=== PATIENT | female | born 1940 | race Caucasian/White ===

== ENCOUNTER 2017-03-01 13:36 | Inpatient (IN) | payer MEDICARE ==
[~2017-03-01] VITALS: Ht 170.2 cm; Wt 79.5 kg
[2017-03-01] VITALS (13 sets, daily range): BP systolic 137–197; BP diastolic 72–96; PULSE 50–89; RESP 16–20; TEMP 97.6–98.5; O2SAT 95–100
[2017-03-01] MEDS ORDERED: LEVO25TA4 PO (13:57)
[2017-03-01] MEDS ORDERED: CLON1TAB PO (13:57)
[2017-03-01] MEDS ORDERED: LOSA100T PO (13:57)
[2017-03-01] MEDS ORDERED: APIX5TAB PO (13:57)
[2017-03-01] MEDS ORDERED: DILT-44 PO (13:57)
--- NOTE | 2017-03-01 14:25 | PD ---
HPI Chief Complaint: Pain: Acute or Chronic Time Seen by Provider: 13:49 Travel History International Travel<30 days: No Contact w/Intl Traveler<30days: No Traveled to known affect area: No History of Present Illness HPI 76-year-old female history of hypertension, atrial fibrillation, who presents today with complaints of jaw pain. Patient states she's had it for nearly 24 hours. She states it improved since yesterday. She states she called her doctor in [place] who told her to come in the evaluated as she could have atypical ACS. Patient denies any chest pain, chest pressure. She does states she's been a little bit more fatigued than normal. She denies any shortness of breath or diaphoresis. PFSH Past Medical History Hx Anticoagulant Therapy: Yes (ELIQUIS) Atrial Fibrillation: Yes Anxiety: Yes Cardiovascular Problems: Yes (A. FIB) Hypertension: Yes Thyroid Disease: Yes ?: Not Past Surgical History Surgical History: No Previous Surgery Social History Alcohol Use: Yes Tobacco Use: No Substance Use: No Allergies-Medications (Allergen,Severity, Reaction): Coded Allergies: No Known Allergies (Unverified , 03/01/17) Reported Meds & Prescriptions Reported Meds & Active Scripts Active Reported Clonazepam 1 Mg Tab 1 Mg PO BID PRN Diltiazem ER 24 HR 420 Mg Caper 420 Mg PO DAILY Losartan (Losartan Potassium) 100 Mg Tab 100 Mg PO HS Eliquis (Apixaban) 5 Mg Tab 5 Mg PO BID Levothyroxine (Levothyroxine Sodium) 25 Mcg Tab 25 Mcg PO DAILY Review of Systems Except as stated in HPI: all other systems reviewed are Neg General / Constitutional: No: Fever HENT: Positive: Other, No: Headaches, Neck Pain Cardiovascular: Positive: Irregular Rhythm, No: Chest Pain or Discomfort, Palpitations (jaw pain) Respiratory: No: Cough, Shortness of Breath Gastrointestinal: No: Nausea, Vomiting, Abdominal Pain Genitourinary: Positive: Frequency, Dysuria Musculoskeletal: Positive: Weakness (I generalized fatigue), No: Pain Neurologic: No: Weakness, Dizziness, Headache Physical Exam Narrative GENERAL: Well-developed well-nourished female in no acute rest her distress. SKIN: Focused skin assessment warm/dry. HEAD: Atraumatic. Normocephalic. EYES: No scleral icterus. No injection or drainage. ENT: No nasal bleeding or discharge. Mucous membranes pink and moist. NECK: Trachea midline. No JVD. Supple CARDIOVASCULAR: Irregularly irregular with a rate in the 90s. No murmur appreciated. RESPIRATORY: No accessory muscle use. Clear to auscultation. Breath sounds equal bilaterally. GASTROINTESTINAL: Abdomen soft, non-tender, nondistended. Hepatic and splenic margins not palpable. MUSCULOSKELETAL: No obvious deformities. No clubbing. No cyanosis. Trace pretibial edema bilaterally NEUROLOGICAL: Awake and alert. No obvious cranial nerve deficits. Motor grossly within normal limits. Normal speech. PSYCHIATRIC: Appropriate mood and affect; insight and judgment normal. Data Data Last Documented VS Vital Signs Date Time Temp Pulse Resp B/P Pulse Ox O2 Delivery O2 Flow Rate FiO2 03/01/17 16:09 68 17 197/86 97 Nasal Cannula 2 03/01/17 15:02 98.5 Orders Electrocardiogram (03/01/17 14:57) Basic Metabolic Panel (Bmp) (03/01/17 14:57) Ckmb (Isoenzyme) Profile (03/01/17 14:57) Complete Blood Count With Diff (03/01/17 14:57) Magnesium (Mg) (03/01/17 14:57) Prothrombin Time / Inr (Pt) (03/01/17 14:57) Act Partial Throm Time (Ptt) (03/01/17 14:57) Troponin I (03/01/17 14:57) Chest, Single Ap (03/01/17 14:57) Ecg Monitoring (03/01/17 14:57) Bilateral Bp Monitoring (03/01/17 14:57) Iv Access Insert/Monitor (03/01/17 14:57) Oximetry (03/01/17 14:57) Oxygen Administration (03/01/17 14:57) Sodium Chloride 0.9% Flush (Ns Flush) (03/01/17 15:00) Sodium Chlor 0.9% 1000 Ml Inj (Ns 1000 M (03/01/17 15:45) Metoprolol Tartrate Inj (Lopressor Inj) (03/01/17 16:00) Morphine Inj (Morphine Inj) (03/01/17 16:00) Aspirin Chew (Aspirin Chew) (03/01/17 16:15) Diltiazem Cd (Cardizem Cd) (03/01/17 16:30) Diltiazem Cd (Cardizem Cd) (03/01/17 16:30) Echo 2d Comp With Doppler (03/01/17 ) Nitroglycerin-Dextrose Inj (Nitroglyceri (03/01/17 17:00) Clonazepam (Klonopin) (03/01/17 17:00) Levothyroxine (Synthroid) (03/02/17 06:00) Losartan (Cozaar) (03/01/17 21:00) Diltiazem Cd (Cardizem Cd) (03/02/17 09:00) Lipid Profile (03/02/17 06:00) Carvedilol (Coreg) (03/01/17 21:00) Atorvastatin (Lipitor) (03/01/17 21:00) Hepatic Functional Panel (03/01/17 17:04) Aspirin (Aspirin) (03/02/17 09:00) Diltiazem Cd (Cardizem Cd) (03/02/17 09:00) Labs Laboratory Tests Test 03/01/17 13:55 White Blood Count 9.2 TH/MM3 Red Blood Count 5.19 MIL/MM3 Hemoglobin 15.6 GM/DL Hematocrit 46.2 % Mean Corpuscular Volume 89.0 FL Mean Corpuscular Hemoglobin 30.0 PG Mean Corpuscular Hemoglobin 33.7 % Concent Red Cell Distribution Width 12.9 % Platelet Count 213 TH/MM3 Mean Platelet Volume 8.3 FL Neutrophils (%) (Auto) 71.7 % Lymphocytes (%) (Auto) 18.3 % Monocytes (%) (Auto) 8.4 % Eosinophils (%) (Auto) 1.3 % Basophils (%) (Auto) 0.3 % Neutrophils # (Auto) 6.6 TH/MM3 Lymphocytes # (Auto) 1.7 TH/MM3 Monocytes # (Auto) 0.8 TH/MM3 Eosinophils # (Auto) 0.1 TH/MM3 Basophils # (Auto) 0.0 TH/MM3 CBC Comment DIFF FINAL Differential Comment Prothrombin Time 11.2 SEC Prothromb Time International 1.0 RATIO Ratio Activated Partial 31.7 SEC Thromboplast Time Sodium Level 136 MEQ/L Potassium Level 4.0 MEQ/L Chloride Level 100 MEQ/L Carbon Dioxide Level 26.5 MEQ/L Anion Gap 10 MEQ/L Blood Urea Nitrogen 17 MG/DL Creatinine 0.79 MG/DL Estimat Glomerular Filtration 71 ML/MIN Rate Random Glucose 89 MG/DL Calcium Level 9.0 MG/DL Magnesium Level 2.4 MG/DL Total Creatine Kinase 48 U/L Troponin I 0.24 NG/ML MDM Medical Decision Making Medical Screen Exam Complete: Yes Emergency Medical Condition: Yes Differential Diagnosis Atypical ACS versus TMJ versus jaw strain Narrative Course 76-year-old female with history of hypertension, atrial fibrillation, presents here with complaints of jaw pain since this morning. Patient states that she has no chest pain, chest pressure. She does say that she's been a little bit more weak than normal. EKG showed A. fib with an interventricular conduction delay. There is questionable [address] elevation in the anterior septal leads. Cardiac enzymes reveal troponin of 0.24. She is noted to have elevated blood pressure. She was given Lopressor which did not bring it down enough. She was then given 420 mg of Cardizem that she normally takes. Pressure still elevated so Dr. Caceres who was seen the patient has consulted and has written for a nitro drip. She'll be admitted to the resident service under Dr. Byron Francis says the attending physician. Please note Dr. Rosen, senior resident has been gracious enough to come down and see the patient. Diagnosis Primary Impression: Non-ST elevation NE (NSTEMI) Additional Impressions: Atrial fibrillation Uncontrolled hypertension Admitting Information Admitting Physician Requests: Admit Chet Whitley MD Mar 01, 2017 14:25
[2017-03-01] MEDS: SODIUM CHLORIDE 0.9% FLUSH 10 ML FLUSH IVF PRN ×2 (15:04→16:04)
[2017-03-01 15:22] LABS: AUTOMATED NEUTROPHIL # 6.6 TH/MM3 (1.8-7.7); BASOPHIL % 0.3 % (0.0-2.0); EOSINOPHIL # 0.1 TH/MM3 (0-0.4); EOSINOPHIL % 1.3 % (0.0-4.0); HEMATOCRIT 46.2 % (35.0-46.0); HEMO FLAGS DIFF FINAL; LYMPH % 18.3 % (9.0-44.0); LYMPHOCYTE # 1.7 TH/MM3 (1.0-4.8); MEAN CORPUSCULAR HGB CONC 33.7 % (32.0-36.0); MONO % 8.4 % (0.0-8.0); NEUT % 71.7 % (16.0-70.0); PLATELET COUNT 213 TH/MM3 (150-450); RED BLOOD COUNT 5.19 MIL/MM3 (4.00-5.30); RED CELL DISTRIBUTION WIDTH 12.9 % (11.6-17.2); WHITE BLOOD COUNT 9.2 TH/MM3 (4.0-11.0)
[2017-03-01 15:32] LABS: APTT (PATIENT) 31.7 SEC (24.3-30.1); PROTHROMBIN TIME - PATIENT 11.2 SEC (9.8-11.6)
--- NOTE | 2017-03-01 15:36 | RADRPT ---
EXAM DATE/TIME: 03/01/2017 15:00 [facility] COMPARISON: No previous studies available for comparison. INDICATIONS : Jaw pain. MEDICAL HISTORY : Atrial fibrillation SURGICAL HISTORY : None. ENCOUNTER: Initial ACUITY: 1 day PAIN SCORE: 7/10 LOCATION: Jaw FINDINGS: A single view of the chest demonstrates the lungs to be symmetrically aerated without evidence of mas s, infiltrate or effusion. Heart is mildly enlarged The cardiomediastinal contours are otherwise unre markable. Osseous structures are intact. CONCLUSION: Mild cardiomegaly. No acute cardiopulmonary process. Eh Santana MD on March 01, 2017 at 15:34 Board Certified Radiologist. This report was verified electronically.
[2017-03-01] MEDS ORDERED: SODIUM CHLOR 0.9% 1000 ML INJ 1,000 ML IV ONE (15:45)
[2017-03-01 15:47] LABS: BICARBONATE 26.5 MEQ/L (21.0-32.0); MAGNESIUM 2.4 MG/DL (1.5-2.5)
[2017-03-01] MEDS ORDERED: MORPHINE SULFATE 4 MG/ML INJ IV PUSH ONE (16:00)
[2017-03-01] MEDS ORDERED: METOPROLOL TARTRATE 5 MG/5 ML VIAL IV PUSH ONE (16:00)
[2017-03-01] MEDS ORDERED: ASPIRIN 81 MG CHEW TAB CHEW ONE (16:15)
[2017-03-01] MEDS ORDERED: DILTIAZEM-CD 180 MG CAP ER PO SCH (16:30)
[2017-03-01] MEDS ORDERED: DILTIAZEM-CD 240 MG CAP ER PO ONE (16:30)
--- NOTE | 2017-03-01 17:01 | HHI.HP ---
[facility] Primary Care Physician Non-Staff Admission Diagnosis Diagnoses: International Travel<30 Days: No Contact w/Intl Traveler<30days: No Known Affected Area: No History of Present Illness Patient is a 76-year-old female with a past history of hypertension and hypothyroidism who came into the ED with jaw pain. The patient states that yesterday prior to going out to shop she felt slightly lightheaded, but that passed shortly. At 11:30 on the day of admission she noted some jaw pain. She contacted her primary care provider Dr. Arnaldo estrada in [facility] who advised her to go to the ED to rule out a possible atypical myocardial infarction. She notes that the jaw pain was dull, started on the left side and eventually felt throughout the entire jaw. The pain has since subsided. No complaints of concurrent dizziness chest pain, palpitations, shortness of breath , headache, changes in vision, syncope, weakness, numbness or tingling, abdominal pain, changes in bowel or bladder habits. Currently at admission notes resolution of her jaw pain. No other current complaints. She notes she sees Dr. Alphonso Chappell at [facility] in [facility]. (Vignesh Best MD R1) Review of Systems Constitutional: DENIES: Diaphoretic episodes, Fatigue, Fever, Chills, Dizziness , Change in appetite, Night Sweats Endocrine: DENIES: Heat/cold intolerance, Polydipsia, Polyuria, Polyphagia Eyes: DENIES: Blurred vision, Diplopia, Eye inflammation, Eye pain, Vision loss , Photosensitivity, Double Vision Ears, nose, mouth, throat: DENIES: Hearing loss, Vertigo, Nasal discharge, Throat pain, Hoarseness, Ear Pain, Running Nose, Epistaxis, Sinus Pain Respiratory: DENIES: Cough, Wheezing, Hemoptysis, Sputum production, Shortness of breath Cardiovascular: COMPLAINS OF: Lower Extremity Edema (Normally has swelling during the day that decreases at night, better today), DENIES: Chest pain, Palpitations, Syncope, PND, Orthopnea, Claudication Gastrointestinal: DENIES: Abdominal pain, Black stools, Bloody stools, Constipation, Diarrhea, Nausea, Vomiting Genitourinary: DENIES: Urinary frequency, Urgency, Hematuria, Dysuria, Nocturia Musculoskeletal: DENIES: Joint pain, Muscle aches, Joint Swelling Neurologic: DENIES: Abnormal gait, Headache, Localized weakness Psychiatric: DENIES: Confusion (Vignesh Best MD R1) Past Family Social History Past Medical History Afib HTN Hypothyroid Past Surgical History None reported (Vignesh Best MD R1) Allergies: Coded Allergies: No Known Allergies (Unverified , 03/01/17) Family History Father - bypass surgery in 60s, stroke at 77 / Mother - HTN Sister - Parkinson, pacemaker, stroke (refused to take her anticoagulation) Social History ETOH - wine occasionally Smoking: No Drugs - Never (Vignesh Best MD R1) Physical Exam Vital Signs Vital Signs Date Time Temp Pulse Resp B/P Pulse Ox O2 Delivery O2 Flow Rate FiO2 03/01/17 16:09 68 17 197/86 97 Nasal Cannula 2 03/01/17 15:04 100 Nasal Cannula 2 03/01/17 15:02 100 Nasal Cannula 2 03/01/17 15:02 98.5 59 18 172/82 100 Nasal Cannula 2 03/01/17 14:00 89 18 03/01/17 13:38 97.6 88 20 196/96 97 Room Air Physical Exam GENERAL: This is a well-nourished, well-developed patient, in no apparent distress. SKIN: No rashes, ecchymoses or lesions. Cool and dry. HEAD: Atraumatic. Normocephalic. No temporal or scalp tenderness. EYES: Pupils equal round and reactive. Extraocular motions intact. No scleral icterus. No injection or drainage. ENT: Nose without bleeding, purulent drainage or septal hematoma. Throat without erythema, tonsillar hypertrophy or exudate. Uvula midline. Airway patent. NECK: Trachea midline. No JVD or lymphadenopathy. Supple, nontender, no meningeal signs. CARDIOVASCULAR: irregularly irregular without murmurs, gallops, or rubs. Normal S1/S2 RESPIRATORY: Clear to auscultation. Breath sounds equal bilaterally. No wheezes , rales, or rhonchi. GASTROINTESTINAL: Abdomen soft, non-tender, nondistended. No hepato-splenomegaly , or palpable masses. No guarding. MUSCULOSKELETAL: Extremities without clubbing, cyanosis. 1+ edema in lower B/L extremities. No joint tenderness, effusion, or edema noted. No calf tenderness. NEUROLOGICAL: Awake and alert. Cranial nerves II through XII intact. Motor and sensory grossly within normal limits. Five out of 5 muscle strength in all muscle groups. Normal speech. Laboratory Laboratory Tests Test 03/01/17 13:55 White Blood Count 9.2 Red Blood Count 5.19 Hemoglobin 15.6 Hematocrit 46.2 Mean Corpuscular Volume 89.0 Mean Corpuscular Hemoglobin 30.0 Mean Corpuscular Hemoglobin 33.7 Concent Red Cell Distribution Width 12.9 Platelet Count 213 Mean Platelet Volume 8.3 Neutrophils (%) (Auto) 71.7 Lymphocytes (%) (Auto) 18.3 Monocytes (%) (Auto) 8.4 Eosinophils (%) (Auto) 1.3 Basophils (%) (Auto) 0.3 Neutrophils # (Auto) 6.6 Lymphocytes # (Auto) 1.7 Monocytes # (Auto) 0.8 Eosinophils # (Auto) 0.1 Basophils # (Auto) 0.0 CBC Comment DIFF FINAL Differential Comment Prothrombin Time 11.2 Prothromb Time International 1.0 Ratio Activated Partial 31.7 Thromboplast Time Sodium Level 136 Potassium Level 4.0 Chloride Level 100 Carbon Dioxide Level 26.5 Anion Gap 10 Blood Urea Nitrogen 17 Creatinine 0.79 Estimat Glomerular Filtration 71 Rate Random Glucose 89 Calcium Level 9.0 Magnesium Level 2.4 Total Creatine Kinase 48 Troponin I 0.24 (Vignesh Best MD R1) Result Diagram: 03/01/17 1355 03/01/17 1355 Imaging Last 24 hours Impressions Chest X-Ray 03/01/17 1457 Signed Impressions: Service Date/Time: Friday, March 01, 2017 15:00 - CONCLUSION: Mild cardiomegaly. No acute cardiopulmonary process. Eh Santana MD (Vignesh Best MD R1) Assessment and Plan Assessment and Plan 76 year old female with past history of HTN and hypothyroid presented to the ED with jaw pain. Troponin elevated at .24 on admission. Had a dose of eliquis on day of admission, cardiac intervention deferred for this day. Code Status Full (Vignesh Best MD R1) Attending Attestation THIS CASE WAS DISCUSSED WITH THE RESIDENT PHYSICIANS. I HAVE REVIEWED THE RECORD AND AGREE WITH THE ABOVE NOTE AND PLAN OF CARE WAS DISCUSSED. I HAVE AUTHORIZED THE ORDER FOR ADMISSION TO AN IN-PATIENT STATUS. (Byron Mcguire MD) Problem List: (1) Non-ST elevation PR (NSTEMI) Status: Acute Plan: * Cardiology on board, appreciate recommendations * Troponin .24 on admission, F/U troponin x 2 * F/U lipid profile * ASA 81 daily * Nitro * Atorvastatin 10 mg hs * Delayed catheterization due to dose of Eliquis on day of admission * F/U echo * Morphine prn pain * Carvedilol 3.125 mg q12 (2) Atrial fibrillation Status: Acute Plan: * Diltiazem * Carvedilol 3.125 mg q12 * Eliquis held due to possible cath (3) HTN (hypertension) Status: Acute Plan: * Cardiology on board * Carvedilol 3.125 mg q12 * Nitro drip (4) Hypothyroid Status: Acute Plan: Continue home medications * Levothyroxine 25 mcg daily * F/U TSH (5) FEN Status: Acute Plan: Fluids - 1/2 maintenance NS @ 60 mls/hr Electrolytes - monitor and correct as needed Nutrition - NPO after midnight PPX -on Eliquis, possible cath in AM (Vignesh Best MD R1) Physician Certification 2 Midnight Certification Type: Admission for Inpatient Services Order for Inpatient Services The services are ordered in accordance with Medicare regulations or non- Medicare payer requirements, as applicable. In the case of services not specified as inpatient-only, they are appropriately provided as inpatient services in accordance with the 2-midnight benchmark. Estimated LOS (days): 2 2 days is the estimated time the patient will need to remain in the hospital, assuming treatment plan goals are met and no additional complications. Post-Hospital Plan: Home (Vignesh Best MD R1) Vignesh Best MD R1 Mar 01, 2017 17:01 Byron Mcguire MD Mar 02, 2017 15:21
[2017-03-01] MEDS ORDERED: ONDANSETRON HCL 4 MG/2 ML VIAL IV PRN (17:15)
[2017-03-01] MEDS ORDERED: SODIUM CHLORIDE 0.9% FLUSH 10 ML FLUSH IV FLUSH PRN (17:15)
[2017-03-01] MEDS ORDERED: MORPHINE SULFATE 4 MG/ML INJ IV PRN (17:15)
[2017-03-01] MEDS ORDERED: NITROGLYCERIN 2% OINT 1 GM PACKET TOP PRN (17:15)
[2017-03-01] MEDS ORDERED: NITROGLYCERIN 0.4 MG SL 25 TABS/BTL SL PRN (17:15)
[2017-03-01] MEDS: NITROGLYCERIN-DEXTROSE INJ 250 ML IV SCH (17:18)
--- NOTE | 2017-03-01 17:26 | MB ---
cc: DOMINICK CALHOUN MD DATE OF CONSULTATION: 03/01/2017. REASON FOR CONSULTATION: Jaw pain and elevated troponin. HISTORY OF PRESENT ILLNESS Ms. Jackson is a 76-year-old female who does have a history of hypertension and atrial fibrillation. She presented after several hours of jaw pain. The jaw pain started after breakfast. She did take her Eliquis at that time. She notes that it lasted several hours and did not appear to have any precipitating or relieving factors. She denied any chest or arm pain. The patient is currently jaw pain-free. She does not have any shortness of breath or diaphoresis. PAST MEDICAL HISTORY: Her past medical history is significant for: 1. Hypothyroidism. 2. Hypertension. 3. Atrial fibrillation. 4. An abnormal EKG. ALLERGIES: NO KNOWN DRUG ALLERGIES. OUTPATIENT MEDICATIONS: 1. Clonazepam 1 milligram p.o. twice a day PRN. 2. Diltiazem 420 milligrams daily at noon. 3. Losartan 100 milligrams at bedtime. 4. Apixaban 5 milligrams twice a day. 5. Levothyroxine 25 micrograms a day. FAMILY HISTORY Positive for father who had a CABG and mother who had a CVA. REVIEW OF SYSTEMS: Except for what is mentioned in the history of present illness, all twelve systems are negative. SOCIAL HISTORY: The patient is a former smoker. PHYSICAL EXAMINATION: VITAL SIGNS: On physical examination, vital signs are 68, 17, 197/86. GENERAL: In general, she is a well-appearing female who is in no apparent distress. NECK: Her neck is free from jugular venous distention. LUNGS: The lungs are bilaterally clear to auscultation. CARDIOVASCULAR: On cardiovascular examination, she has an irregularly irregular rhythm. No rubs or gallops are appreciated. ABDOMEN: The abdomen is soft. EXTREMITIES: Free from edema. EKG shows atrial fibrillation. There are anteroseptal Q-waves with about 1 mm S-T elevation. There is also abnormal R-wave progression and interventricular conduction delay. Of note, the first ECG leads 3 through 6 were misplaced to the right about six inches. EKG #2 shows atrial fibrillation with anteroseptal Q waves and this is more consistent with her underlying left bundle branch block. LAB VALUES: Significant for: Hemoglobin of 15.6. Her creatinine is 0.79. Her troponin is 0.24. IMPRESSIONS: 1. Non-S-T elevation myocardial infarction - it is not clear if this is a secondary event from her uncontrolled hypertension or a primary event. At this point, the patient is pain-free. She has had a dose of Eliquis about six to eight hours earlier. Given this scenario, and that she is pain-free, at this point I am going to defer invasive evaluation. An echocardiogram has been requested. I believe aspirin and beta izzy is reasonable. 2. History of atrial fibrillation - the patient is well rate controlled. She will be continued on the Diltiazem. She has been given some beta blockade which we will continue low dose. I am going to hold her Eliquis in case we do need to proceed with catheterization. 3. 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 4. Uncontrolled hypertension - this may be the etiology of the patient's pain. I am going to start her on a nitro drip for her blood pressure control. , Dominick Calhoun M.D. ELISA/LILLIANA /4:56 PM /5:08 PM
--- NOTE | 2017-03-01 17:41 | ECHRPT ---
Indication: CONCLUSIONS The left ventricle is not well visualized. There was limited left ventricular wall motion assessment due to poor endocardial visualization. The left ventricular systolic function is low normal with an estimated ejection fraction in the rang e of 50- 55%. Wall thickness is measured at the upper limits of normal. Normal left ventricular size. The right atrial size is mildly dilated. Mild mitral valve regurgitation. The aortic valve is not well visualized. Mild thickening of the aortic valve leaflets. Probably trileaflet aortic valve. Mild aortic valve regurgitation. The tricuspid valve is not well visualized. There is mild to moderate tricuspid valve regurgitation. The estimated pulmonary arterial pressure is 53 mmHg. The pulmonary valve is not well visualized. BP: / HR: 78 Rhythm: Atrial fibrillation MEASUREMENTS (Male / Female) Normal Values Technical Quality:Technically difficult study 2D ECHO LV Diastolic Diameter PLAX 4.4 cm 4.2 - 5.9 / 3.9 - 5.3 cm LV Systolic Diameter PLAX 3.1 cm IVS Diastolic Thickness 0.9 cm 0.6 - 1.0 / 0.6 - 0.9 cm LVPW Diastolic Thickness 0.9 cm 0.6 - 1.0 / 0.6 - 0.9 cm LV Relative Wall Thickness 0.4 LVOT Diameter 1.8 cm M-MODE Aortic Root Diameter MM 2.8 cm LA Systolic Diameter MM 4.0 cm LA Ao Ratio MM 1.4 DOPPLER AV Peak Velocity 128.0 cm/s AV Peak Gradient 6.6 mmHg AI Peak Velocity 488.0 cm/s AI Peak Gradient 95.3 mmHg AI Pressure Half Time 646.7 ms LVOT Peak Velocity 74.5 cm/s LVOT Peak Gradient 2.2 mmHg AV Area Cont Eq pk 1.5 cm MR Peak Velocity 419.5 cm/s MR Peak Gradient 70.4 mmHg Mitral E Point Velocity 112.0 cm/s Mitral A Point Velocity 51.3 cm/s Mitral E to A Ratio 2.2 TR Peak Velocity 326.0 cm/s TR Peak Gradient 43.0 mmHg PV Peak Velocity 77.4 cm/s PV Peak Gradient 2.4 mmHg FINDINGS LEFT VENTRICLE The left ventricle is not well visualized. Dyssynchrony of motion from BBB. There was limited left ventricular wall motion assessment due to poor endocardial visualization. The left ventricular systolic function is low normal with an estimated ejection fraction in the rang e of 50- 55%. Wall thickness is measured at the upper limits of normal. Normal left ventricular size. RIGHT VENTRICLE Normal right ventricular size and systolic function. LEFT ATRIUM The left atrial size is normal. RIGHT ATRIUM The right atrial size is mildly dilated. ATRIAL SEPTUM Normal atrial septal thickness without atrial level shunting by limited color doppler interrogation. AORTA The aortic root and proximal ascending aorta are normal in size on limited imaging. MITRAL VALVE Structurally normal mitral valve. Mild mitral valve regurgitation. AORTIC VALVE The aortic valve is not well visualized. Mild thickening of the aortic valve leaflets. Probably trileaflet aortic valve. Mild aortic valve regurgitation. TRICUSPID VALVE The tricuspid valve is not well visualized. There is mild to moderate tricuspid valve regurgitation. The estimated pulmonary arterial pressure is 53 mmHg. PULMONARY VALVE The pulmonary valve is not well visualized. VESSELS The inferior vena cava is normal in size. PERICARDIUM No pericardial effusion. Papo Palma MD (Electronically Signed) Final Date:01 March 2017 17:38
[2017-03-01 18:42] LABS: HDL CHOLESTEROL 87.1 MG/DL (40.0-60.0); INDIRECT BILIRUBIN 0.4 MG/DL (0.0-0.8); TOTAL BILIRUBIN ADULT 0.5 MG/DL (0.2-1.0)
[2017-03-01] MEDS: ATORVASTATIN 10 MG TAB PO SCH (20:41)
[2017-03-01] MEDS: LOSARTAN 50 MG TAB PO SCH (20:41)
[2017-03-01] MEDS: CARVEDILOL 3.125 MG TAB PO SCH (20:41)
[2017-03-01] MEDS: SODIUM CHLORIDE 0.9% FLUSH 10 ML FLUSH IV FLUSH SCH (20:42)
[2017-03-01 20:47] LABS: CREATINE KINASE 150 U/L (26-192)
[2017-03-01] MEDS: SODIUM CHLOR 0.9% 1000 ML INJ 1,000 ML IV SCH (21:15)
[2017-03-01 21:28] LABS: CKMB 15.7 NG/ML (0.5-3.6)
[2017-03-01] MEDS: clonazePAM 1 MG TAB PO PRN (21:52)
[2017-03-02] VITALS (27 sets, daily range): BP systolic 121–160; BP diastolic 62–85; PULSE 50–86; RESP 14–18; TEMP 97.5–98.7; O2SAT 92–97
[2017-03-02 03:15] LABS: AUTOMATED NEUTROPHIL # 4.4 TH/MM3 (1.8-7.7); BASOPHIL % 0.5 % (0.0-2.0); EOSINOPHIL # 0.1 TH/MM3 (0-0.4); EOSINOPHIL % 1.6 % (0.0-4.0); HEMATOCRIT 38.2 % (35.0-46.0); HEMO FLAGS DIFF FINAL; LYMPH % 28.1 % (9.0-44.0); LYMPHOCYTE # 2.1 TH/MM3 (1.0-4.8); MEAN CELL VOLUME 88.2 FL (80.0-100.0); MEAN CORPUSCULAR HEMOGLOBIN 30.5 PG (27.0-34.0); MEAN CORPUSCULAR HGB CONC 34.6 % (32.0-36.0); MONO % 11.6 % (0.0-8.0); NEUT % 58.2 % (16.0-70.0); PLATELET COUNT 180 TH/MM3 (150-450); RED BLOOD COUNT 4.34 MIL/MM3 (4.00-5.30); RED CELL DISTRIBUTION WIDTH 12.8 % (11.6-17.2); WHITE BLOOD COUNT 7.5 TH/MM3 (4.0-11.0)
[2017-03-02 03:46] LABS: ALKALINE PHOSPHATASE 108 U/L (45-117); ALT (GPT) 20 U/L (10-53); ANION GAP 8 MEQ/L (5-15); AST (GOT) 39 U/L (15-37); BICARBONATE 24.9 MEQ/L (21.0-32.0); BLOOD UREA NITROGEN 14 MG/DL (7-18); CHLORIDE 106 MEQ/L (98-107); CREATINE KINASE 143 U/L (26-192); GLOMERULAR FILTRATION RATE 80 ML/MIN (>89); HDL CHOLESTEROL 73.1 MG/DL (40.0-60.0); LDL CHOLESTEROL 79 MG/DL (0-99); POTASSIUM 3.7 MEQ/L (3.5-5.1); SODIUM (NA) 139 MEQ/L (136-145); TOTAL BILIRUBIN ADULT 0.5 MG/DL (0.2-1.0)
[2017-03-02 04:05] LABS: CKMB 15.9 NG/ML (0.5-3.6)
[2017-03-02] MEDS: LEVOTHYROXINE SODIUM 25 MCG TAB PO SCH (05:56)
[2017-03-02] MEDS ORDERED: diphenhydrAMINE HCL 50 MG/ML VIAL IV SCH (07:15)
--- NOTE | 2017-03-02 08:18 | HHI.FPPN ---
Subjective Remarks FM Attending Note: Patient seen and examined. S: Chart and all resident physician notes reviewed. In summary this is a 76 year old female who was admitted with an admission diagnosis of possible Nonstemi,Jaw Pain Resolved,Atrial Fibrillation, This patient is visiting from [place]. She has a past history of hypertension and hypothyroidism. She came into the ED with jaw pain. The patient states that yesterday prior to going out to shop she felt slightly lightheaded, but that passed shortly. At 11: 30 she noted some jaw pain while at rest. She contacted her primary care provider Dr. Arnaldo Alcantar in [facility] who advised her to go to the ED to rule out a possible atypical myocardial infarction. She notes that the jaw pain was dull, started on the left side and eventually felt throughout the entire jaw. The pain has since subsided and has not recurred since admission (she is on a nitroglycerin drip). No complaints of concurrent dizziness chest pain, palpitations, shortness of breath, headache, changes in vision, syncope, weakness, numbness or tingling, abdominal pain, changes in bowel or bladder habits.. The history of the present illness, past/family/social history and review of systems documented by Dr. Best were reviewed and confirmed. Objective Vitals Vital Signs Date Time Temp Pulse Resp B/P Pulse Ox O2 Delivery O2 Flow Rate FiO2 03/02/17 07:22 98.1 65 14 156/63 92 03/02/17 06:00 64 03/02/17 05:00 68 03/02/17 04:00 64 03/02/17 03:00 69 03/02/17 03:00 98.4 63 18 138/68 94 03/02/17 02:00 53 03/02/17 01:00 50 03/02/17 00:00 55 03/02/17 00:00 98.7 55 18 121/62 94 03/01/17 23:00 50 03/01/17 22:00 51 03/01/17 21:00 63 03/01/17 20:00 62 03/01/17 19:15 97.9 84 18 137/72 95 03/01/17 19:00 67 03/01/17 18:31 97.6 75 16 157/84 95 03/01/17 18:30 89 167/79 100 Nasal Cannula 2 03/01/17 18:00 95 21 03/01/17 17:29 22 03/01/17 16:09 68 17 197/86 97 Nasal Cannula 2 03/01/17 15:04 100 Nasal Cannula 2 03/01/17 15:02 100 Nasal Cannula 2 03/01/17 15:02 98.5 59 18 172/82 100 Nasal Cannula 2 03/01/17 14:00 89 18 03/01/17 13:38 97.6 88 20 196/96 97 Room Air I/O 03/01/17 03/01/17 03/01/17 03/02/17 03/02/17 03/02/17 07:00 15:00 23:00 07:00 15:00 23:00 Intake Total 885 ml Output Total 750 ml Balance 135 ml Intake Oral 480 ml IV Total 405 ml Output Urine Total 750 ml Result Diagram: 03/02/17 0203 03/02/17202 Other Results Item Value Date Time Total Creatine Kinase 48 U/L 03/01/17 135 Total Creatine Kinase 150 U/L 03/01/171956 Total Creatine Kinase 143 U/L 03/02/17 0203 Creatine Kinase MB 15.7 NG/ML H 03/01/171956 Creatine Kinase MB 15.9 NG/ML H 03/02/17 0203 Troponin I 0.24 NG/ML H 03/01/17 1355 Troponin I 13.90 NG/ML *H # 03/01/171956 Troponin I 15.80 NG/ML *H # 03/02/17 0203 Triglycerides Level 158 MG/DL H 03/01/17 1355 Cholesterol Level 212 MG/DL H 03/01/17 1355 LDL Cholesterol 93 MG/DL 03/01/17 1355 HDL Cholesterol 87.1 MG/DL H 03/01/17 1355 Cholesterol/HDL Ratio 2.43 RATIO 03/01/17 1355 Thyroid Stimulating Hormone 3rd Gen 3.030 uIU/ML 03/01/17 1355 Imaging Last 48 hours Impressions Chest X-Ray 03/01/17 1457 Signed Impressions: Service Date/Time: Wednesday, March 01, 2017 15:00 - CONCLUSION: Mild cardiomegaly. No acute cardiopulmonary process. Eh Santana MD Objective Remarks O. CONSTITUTIONAL/GEN: normally nourished, in NAD. EYES: conjunctiva normal, PERRLA, EOMI. ENT: Mouth and pharynx normal. NECK: thyroid midline, carotids symmetrical. LUNGS: clear A-P, respiratory effort is normal. CARDIOVASCULAR: IRR/IRR without murmur or gallop. Trace LE edema with mild hemosiderin staining of the skin of her lower legs. GI/ABD: soft without masses, without organomegaly. NEURO: No focal deficits. SKIN: color normal, no rashes noted. HEME/LYMPH: no bruising, petechia or significant adenopathy MUSC: back is normal in appearance. Extremities are normal in appearance. PSYCH/MENTAL STATUS: Alert and oriented x 3. A/P Assessment and Plan 76 year old female with past history of HTN and hypothyroid presented to the ED with jaw pain. Troponin elevated at .24 on admission. Had a dose of eliquis on day of admission, cardiac intervention deferred for this day. Problem List: (1) Non-ST elevation [place] (NSTEMI) Status: Acute Plan: * Cardiology on board, appreciate recommendations * Troponin .24 on admission, F/U troponin x 2 * F/U lipid profile * ASA 81 daily * Nitro * Atorvastatin 10 mg hs * Delayed catheterization due to dose of Eliquis on day of admission * F/U echo * Morphine prn pain * Carvedilol 3.125 mg q12 03/02/17 The patient remains on IV nitroglycerin and has been pain free sense of mission. She has significant elevation of her cardiac enzymes. Her EKG shows atrial fibrillation with the left bundle branch block and anterior QA use with associated ST changes. Cardiology has seen the patient and recommending cardiac catheterization with consideration to wait another day as long as she is clinically stable to further help clear the novel anticoagulant from her bloodstream. (2) Atrial fibrillation Status: Acute Plan: * Diltiazem * Carvedilol 3.125 mg q12 * Eliquis held due to possible cath (3) HTN (hypertension) Status: Acute Plan: * Cardiology on board * Carvedilol 3.125 mg q12 * Nitro drip (4) Hypothyroid Status: Acute Plan: Continue home medications * Levothyroxine 25 mcg daily * F/U TSH (5) FEN Status: Acute Plan: Fluids - 1/2 maintenance NS @ 60 mls/hr Electrolytes - monitor and correct as needed Nutrition - NPO after midnight PPX -on Eliquis, possible cath in AM Shayla,Byron Vincent MD Mar 02, 2017 08:18
[2017-03-02] MEDS: CARVEDILOL 3.125 MG TAB PO SCH ×2 (08:42→21:06)
[2017-03-02] MEDS: ASPIRIN 325 MG TAB PO SCH (08:42)
[2017-03-02] MEDS: SODIUM CHLORIDE 0.9% FLUSH 10 ML FLUSH IV FLUSH SCH ×2 (09:00→21:00)
--- NOTE | 2017-03-02 09:12 | PD.CARD.PN ---
Subjective Subjective Remarks PT without complaints Objective Medications Current Medications Medications (Trade) Dose Ordered Sig/Jackson Route Start Time Stop Time Status Last Admin (Nitroglycerin-Dextrose Inj) 250 ml @ 0 mls/hr TITRATE IV 03/01/17 17:00 03/01/17 17:18 (KlonoPIN) 1 mg BID PRN PO 03/01/17 17:00 03/01/17 21:52 (Synthroid) 25 mcg DAILY@06 PO 03/02/17 06:00 03/02/17 05:56 (Cozaar) 100 mg HS PO 03/01/17 21:00 03/01/17 20:41 (Cardizem Cd) 240 mg DAILY PO 03/02/17 09:00 (Cardizem Cd) 180 mg DAILY PO 03/02/17 09:00 (Coreg) 3.125 mg Q12HR PO 03/01/17 21:00 03/02/17 08:42 (Lipitor) 10 mg HS PO 03/01/17 21:00 03/01/17 20:41 (Aspirin) 81 mg DAILY PO 03/02/17 09:00 03/02/17 08:42 (NS Flush) 2 ml BID IV FLUSH 03/01/17 21:00 (NS Flush) 2 ml UNSCH PRN IV FLUSH 03/01/17 17:15 (Morphine Inj) 2 mg Q30M PRN IV 03/01/17 17:15 (Tylenol) 650 mg Q6H PRN PO 03/01/17 17:15 Ondansetron HCl 4 mg 4 mg Q6H PRN IV 03/01/17 17:15 (NS 1000 ml Inj) 1,000 ml @ 60 mls/hr [id number] IV 03/01/17 21:15 03/01/17 21:15 Vital Signs / I&O Vital Signs Date Time Temp Pulse Resp B/P Pulse Ox O2 Delivery O2 Flow Rate FiO2 03/02/17 08:28 76 03/02/17 07:22 98.1 65 14 156/63 92 03/02/17 06:00 64 03/02/17 05:00 68 03/02/17 04:00 64 03/02/17 03:00 69 03/02/17 03:00 98.4 63 18 138/68 94 03/02/17 02:00 53 03/02/17 01:00 50 03/02/17 00:00 55 03/02/17 00:00 98.7 55 18 121/62 94 03/01/17 23:00 50 03/01/17 22:00 51 03/01/17 21:00 63 03/01/17 20:00 62 03/01/17 19:15 97.9 84 18 137/72 95 03/01/17 19:00 67 03/01/17 18:31 97.6 75 16 157/84 95 03/01/17 18:30 89 167/79 100 Nasal Cannula 2 03/01/17 18:00 95 21 03/01/17 17:29 22 03/01/17 16:09 68 17 197/86 97 Nasal Cannula 2 03/01/17 15:04 100 Nasal Cannula 2 03/01/17 15:02 100 Nasal Cannula 2 03/01/17 15:02 98.5 59 18 172/82 100 Nasal Cannula 2 03/01/17 14:00 89 18 03/01/17 13:38 97.6 88 20 196/96 97 Room Air I/O 03/01/17 03/01/17 03/01/17 03/02/17 03/02/17 03/02/17 07:00 15:00 23:00 07:00 15:00 23:00 Intake Total 885 ml Output Total 750 ml Balance 135 ml Intake Oral 480 ml IV Total 405 ml Output Urine Total 750 ml Physical Exam GENERAL: Well developed, well nourished. No acute distress. HEENT: Jugular venous pressure is normal. CHEST: Lungs clear to auscultation bilaterally. Unlabored respiratory effort. CARDIAC: Regular rate and rhythm without S3, S4, or murmur. ABDOMEN: Soft, nontender, no hepatosplenomegaly. Bowel sounds present. EXTREMITIES: No clubbing, cyanosis, or edema. Laboratory Laboratory Tests Test 03/01/17 03/01/17 03/02/17 13:55 19:57 02:03 White Blood Count 9.2 TH/MM3 7.5 TH/MM3 Red Blood Count 5.19 MIL/MM3 4.34 MIL/MM3 Hemoglobin 15.6 GM/DL 13.2 GM/DL Hematocrit 46.2 % 38.2 % Mean Corpuscular Volume 89.0 FL 88.2 FL Mean Corpuscular Hemoglobin 30.0 PG 30.5 PG Mean Corpuscular Hemoglobin 33.7 % 34.6 % Concent Red Cell Distribution Width 12.9 % 12.8 % Platelet Count 213 TH/MM3 180 TH/MM3 Mean Platelet Volume 8.3 FL 8.3 FL Neutrophils (%) (Auto) 71.7 % 58.2 % Lymphocytes (%) (Auto) 18.3 % 28.1 % Monocytes (%) (Auto) 8.4 % 11.6 % Eosinophils (%) (Auto) 1.3 % 1.6 % Basophils (%) (Auto) 0.3 % 0.5 % Neutrophils # (Auto) 6.6 TH/MM3 4.4 TH/MM3 Lymphocytes # (Auto) 1.7 TH/MM3 2.1 TH/MM3 Monocytes # (Auto) 0.8 TH/MM3 0.9 TH/MM3 Eosinophils # (Auto) 0.1 TH/MM3 0.1 TH/MM3 Basophils # (Auto) 0.0 TH/MM3 0.0 TH/MM3 CBC Comment DIFF FINAL DIFF FINAL Differential Comment Prothrombin Time 11.2 SEC Prothromb Time International 1.0 RATIO Ratio Activated Partial 31.7 SEC Thromboplast Time Sodium Level 136 MEQ/L 139 MEQ/L Potassium Level 4.0 MEQ/L 3.7 MEQ/L Chloride Level 100 MEQ/L 106 MEQ/L Carbon Dioxide Level 26.5 MEQ/L 24.9 MEQ/L Anion Gap 10 MEQ/L 8 MEQ/L Blood Urea Nitrogen 17 MG/DL 14 MG/DL Creatinine 0.79 MG/DL 0.71 MG/DL Estimat Glomerular Filtration 71 ML/MIN 80 ML/MIN Rate Random Glucose 89 MG/DL 87 MG/DL Calcium Level 9.0 MG/DL 8.4 MG/DL Magnesium Level 2.4 MG/DL Total Bilirubin 0.5 MG/DL 0.5 MG/DL Direct Bilirubin 0.1 MG/DL Indirect Bilirubin 0.4 MG/DL Aspartate Amino Transf 22 U/L 39 U/L (AST/SGOT) Alanine Aminotransferase 23 U/L 20 U/L (ALT/SGPT) Alkaline Phosphatase 131 U/L 108 U/L Total Creatine Kinase 48 U/L 150 U/L 143 U/L Troponin I 0.24 NG/ML 13.90 NG/ML 15.80 NG/ML Total Protein 8.1 GM/DL 6.8 GM/DL Albumin 4.1 GM/DL 3.2 GM/DL Triglycerides Level 158 MG/DL 82 MG/DL Cholesterol Level 212 MG/DL 168 MG/DL LDL Cholesterol 93 MG/DL 79 MG/DL HDL Cholesterol 87.1 MG/DL 73.1 MG/DL Cholesterol/HDL Ratio 2.43 RATIO 2.29 RATIO Thyroid Stimulating Hormone 3.030 uIU/ML 3rd Gen Creatine Kinase MB 15.7 NG/ML 15.9 NG/ML Imaging Last 72 hours Impressions Chest X-Ray 03/01/17 1457 Signed Impressions: Service Date/Time: Friday, March 01, 2017 15:00 - CONCLUSION: Mild cardiomegaly. No acute cardiopulmonary process. Eh Santana MD Assessment and Plan Assessment and Plan 1. Non-S-T elevation myocardial infarction - -pt asymptomatic, normal EF on ECHO -on asa, BB, statin -risk/bene of cath discussed, at least 10% risk of CV events with cath / PCI bleeding risk would be further minimized by waiting 48 hour post last dose , today reasonable though pt is undecided and will discuss with 2. History of atrial fibrillation - the patient is well rate controlled. 3. History of abnormal EKG - 4. HTN- controlled with NTG gtt Swati Caceres MD Mar 02, 2017 09:12
[2017-03-02] MEDS: DILTIAZEM-CD 180 MG CAP ER PO SCH (10:29)
[2017-03-02] MEDS: DILTIAZEM-CD 240 MG CAP ER PO SCH (10:29)
[2017-03-02] MEDS ORDERED: POTASSIUM CHLORIDE 10 MEQ CAP PO ONE (12:00)
--- NOTE | 2017-03-02 12:30 | EKG ---
Date Performed: 03/01/2017 Time Performed: 16:42:49 PTAGE: 76 years EKG: ATRIAL FIBRILLATION WITH ABERRANT CONDUCTION OR VENTRICULAR PREMATURE COMPLEXES LEFT BUNDLE BRANCH BLOCK ABNORMAL ECG PREVIOUS TRACING : 03/01/2017 13.53 Compared to prior tracing no significant change DOCTOR: Jose Lara Interpretating Date/Time 03/02/2017 12:25:53
--- NOTE | 2017-03-02 12:30 | EKG ---
Date Performed: 03/02/2017 Time Performed: 02:14:16 PTAGE: 76 years EKG: Atrial fibrillation with slow ventricular response with multifocal PVCs or aberrant ventric ular conduction Left bundle branch block Anteroseptal T wave changes may be due to myocardial ischemi a Abnormal ECG PREVIOUS TRACING : 03/01/2017 20.06 Compared to prior tracing no significant change DOCTOR: Jose Lara Interpretating Date/Time 03/02/2017 12:25:37
--- NOTE | 2017-03-02 12:30 | EKG ---
Date Performed: 03/01/2017 Time Performed: 20:06:36 PTAGE: 76 years EKG: Atrial fibrillation with slow ventricular response with multifocal PVCs Left bundle branch block Abnormal ECG PREVIOUS TRACING : 03/01/2017 16.42 Compared to prior tracing no significant change DOCTOR: Jose Lara Interpretating Date/Time 03/02/2017 12:25:45
[2017-03-02] MEDS ORDERED: HEPARIN 25,000 UNITS-D5W 250 ML - PREMIX IV SCH (17:15)
[2017-03-02] MEDS ORDERED: HEPARIN SODIUM - IV 10,000 UNITS/10 ML VIAL IV PRN ×2 (17:15)
[2017-03-02] MEDS: ATORVASTATIN 10 MG TAB PO SCH (21:06)
[2017-03-02] MEDS: clonazePAM 1 MG TAB PO PRN (21:06)
[2017-03-02] MEDS: LOSARTAN 50 MG TAB PO SCH (21:06)
[2017-03-02] MEDS: ACETAMINOPHEN 325 MG TAB PO PRN (21:12)
[2017-03-02] MEDS: NITROGLYCERIN-DEXTROSE INJ 250 ML IV SCH (22:58)
[2017-03-03] VITALS (27 sets, daily range): BP systolic 116–148; BP diastolic 51–85; PULSE 52–92; RESP 18–20; TEMP 97.5–98.5; O2SAT 93–97
[2017-03-03 01:53] LABS: APTT (PATIENT) 47.5 SEC (24.3-30.1)
[2017-03-03] MEDS: LEVOTHYROXINE SODIUM 25 MCG TAB PO SCH (05:34)
[2017-03-03] MEDS: SODIUM CHLOR 0.9% 1000 ML INJ 1,000 ML IV SCH ×2 (05:34→09:32)
[2017-03-03 08:17] LABS: HEMATOCRIT 37.6 % (35.0-46.0); MEAN CELL VOLUME 88.5 FL (80.0-100.0); MEAN CORPUSCULAR HGB CONC 33.9 % (32.0-36.0); PLATELET COUNT 175 TH/MM3 (150-450); RED BLOOD COUNT 4.25 MIL/MM3 (4.00-5.30); RED CELL DISTRIBUTION WIDTH 12.8 % (11.6-17.2); REVIEW FLAG FINAL; WHITE BLOOD COUNT 7.3 TH/MM3 (4.0-11.0)
[2017-03-03 08:29] LABS: APTT (PATIENT) 57.4 SEC (24.3-30.1)
[2017-03-03 08:42] LABS: BICARBONATE 24.3 MEQ/L (21.0-32.0); POTASSIUM 3.5 MEQ/L (3.5-5.1)
[2017-03-03] MEDS: SODIUM CHLORIDE 0.9% FLUSH 10 ML FLUSH IV FLUSH SCH ×2 (09:00→21:00)
[2017-03-03] MEDS: CARVEDILOL 3.125 MG TAB PO SCH (09:31)
[2017-03-03] MEDS: ASPIRIN 325 MG TAB PO SCH (09:32)
[2017-03-03] MEDS: DILTIAZEM-CD 240 MG CAP ER PO SCH (09:32)
[2017-03-03] MEDS: DILTIAZEM-CD 180 MG CAP ER PO SCH (09:32)
--- NOTE | 2017-03-03 09:58 | HHI.FPPN ---
Subjective Remarks Patient states that she is doing well this morning. No concerns. Her pain has resolved. Has decided to to the cardiac catheterization here since she had spoken to her family yesterday. No chest pain, no SOB, no fever or chills, no nausea/ vomiting, no diarrhea/ constipation. (Ritika Miels MD R1) Objective Vitals Vital Signs Date Time Temp Pulse Resp B/P Pulse Ox O2 Delivery O2 Flow Rate FiO2 03/03/17 07:15 68 03/03/17 07:15 97.7 87 20 148/78 95 03/03/17 06:00 81 03/03/17 05:00 69 03/03/17 04:00 52 03/03/17 03:00 98.5 66 18 123/66 94 03/03/17 03:00 74 03/03/17 02:00 57 03/03/17 01:00 56 03/03/17 00:00 52 03/02/17 23:00 80 03/02/17 23:00 98.2 74 18 139/74 95 03/02/17 23:00 74 03/02/17 22:27 145/68 03/02/17 22:03 93 21 03/02/17 22:00 74 03/02/17 21:00 74 03/02/17 20:00 81 03/02/17 19:15 98.0 77 18 160/85 96 03/02/17 18:00 70 03/02/17 17:00 58 03/02/17 16:00 68 03/02/17 15:00 62 03/02/17 15:00 62 03/02/17 15:00 97.5 71 16 130/72 95 03/02/17 14:00 72 03/02/17 13:30 75 16 154/71 96 03/02/17 13:09 86 03/02/17 12:14 98.3 74 16 156/67 94 03/02/17 12:04 82 03/02/17 10:21 78 I/O 03/02/17 03/02/17 03/02/17 03/03/17 03/03/17 03/03/17 06:59 14:59 22:59 06:59 14:59 22:59 Intake Total 885 ml 1180 ml 240 ml Output Total 750 ml 400 ml 1500 ml Balance 135 ml 780 ml -1260 ml Intake Oral 480 ml 720 ml 240 ml IV Total 405 ml 460 ml Output Urine Total 750 ml 400 ml 1500 ml (Ritika Miles MD R1) Result Diagram: 03/03/17 0656 03/03/17 0656 Other Results Laboratory Tests Test 03/01/17 03/02/17 03/03/17 13:55 02:03 06:56 Prothrombin Time 11.2 SEC Prothromb Time International 1.0 RATIO Ratio Magnesium Level 2.4 MG/DL Direct Bilirubin 0.1 MG/DL Indirect Bilirubin 0.4 MG/DL Thyroid Stimulating Hormone 3.030 uIU/ML 3rd Gen Neutrophils (%) (Auto) 58.2 % Lymphocytes (%) (Auto) 28.1 % Monocytes (%) (Auto) 11.6 % Eosinophils (%) (Auto) 1.6 % Basophils (%) (Auto) 0.5 % Neutrophils # (Auto) 4.4 TH/MM3 Lymphocytes # (Auto) 2.1 TH/MM3 Monocytes # (Auto) 0.9 TH/MM3 Eosinophils # (Auto) 0.1 TH/MM3 Basophils # (Auto) 0.0 TH/MM3 CBC Comment DIFF FINAL Differential Comment Total Bilirubin 0.5 MG/DL Aspartate Amino Transf 39 U/L (AST/SGOT) Alanine Aminotransferase 20 U/L (ALT/SGPT) Alkaline Phosphatase 108 U/L Creatine Kinase MB 15.9 NG/ML Total Protein 6.8 GM/DL Albumin 3.2 GM/DL Triglycerides Level 82 MG/DL Cholesterol Level 168 MG/DL LDL Cholesterol 79 MG/DL HDL Cholesterol 73.1 MG/DL Cholesterol/HDL Ratio 2.29 RATIO White Blood Count 7.3 TH/MM3 Red Blood Count 4.25 MIL/MM3 Hemoglobin 12.8 GM/DL Hematocrit 37.6 % Mean Corpuscular Volume 88.5 FL Mean Corpuscular Hemoglobin 30.0 PG Mean Corpuscular Hemoglobin 33.9 % Concent Red Cell Distribution Width 12.8 % Platelet Count 175 TH/MM3 Mean Platelet Volume 8.2 FL Activated Partial 57.4 SEC Thromboplast Time Sodium Level 141 MEQ/L Potassium Level 3.5 MEQ/L Chloride Level 109 MEQ/L Carbon Dioxide Level 24.3 MEQ/L Anion Gap 8 MEQ/L Blood Urea Nitrogen 8 MG/DL Creatinine 0.64 MG/DL Estimat Glomerular Filtration 90 ML/MIN Rate Random Glucose 90 MG/DL Calcium Level 8.3 MG/DL Total Creatine Kinase 65 U/L Troponin I 4.51 NG/ML Objective Remarks O. CONSTITUTIONAL/GEN: normally nourished, in NAD. EYES: conjunctiva normal, PERRLA, EOMI. ENT: Mouth and pharynx normal. NECK: thyroid midline, carotids symmetrical. LUNGS: Diffuse soft wheezes, respiratory effort is normal. CARDIOVASCULAR: IRR/IRR without murmur or gallop. Trace LE edema with mild hemosiderin staining of the skin of her lower legs. GI/ABD: soft without masses, without organomegaly. NEURO: No focal deficits. SKIN: color normal, no rashes noted. HEME/LYMPH: no bruising, petechia or significant adenopathy MUSC: back is normal in appearance. Extremities are normal in appearance. PSYCH/MENTAL STATUS: Alert and oriented x 3. (Ritika Miles MD R1) A/P Assessment and Plan 76 year old female with past history of HTN and hypothyroid presented to the ED with jaw pain. Troponin elevated at .24 on admission and trended upward. Most likely had a NSTEMI. Awaiting cardiac catheterization to be performed today. Discharge Planning Awaiting cath results. Pending cardiology clearance. (Ritika Miles MD R1) Attending Attestation Patient seen and examined. Case reviewed and discussed with the resident team. Agree with plan of care as discussed with me and documented in the resident note. (Byron Mcguire MD) Problem List: (1) Non-ST elevation [place] (NSTEMI) Status: Acute Plan: * Cardiology on board, appreciate recommendations * Troponin .24 on admission->13.9 ->15.8 ->4.51 * Lipid profile: Total cholesterol- 168, LDL- 79, HDL- 73.1 * EKG shows atrial fibrillation with the left bundle branch block and anterior QA use with associated ST changes * Echo results: low normal EF of 50-55% * IV Nitro * ASA 81 daily * Atorvastatin 10 mg hs * Morphine prn pain * Carvedilol 3.125 mg q12 (2) Atrial fibrillation Status: Chronic Plan: * Diltiazem * Carvedilol 3.125 mg q12 * Eliquis held due to possible cath (3) HTN (hypertension) Status: Chronic Plan: * Cardiology on board * Carvedilol 3.125 mg q12 * Nitro drip (4) Hypothyroid Status: Chronic Plan: Continue home medications * Levothyroxine 25 mcg daily * TSH normal at 3.03 (5) Uncontrolled hypertension Status: Acute Plan: Fluids - 1/2 maintenance NS @ 60 mls/hr Electrolytes - monitor and correct as needed Nutrition - Heart Healthy Diet PPX -IV heparin (Ritika Miles MD R1) Ritika Miles MD R1 Mar 03, 2017 09:58 Byron Mcguire MD Mar 04, 2017 10:23
--- NOTE | 2017-03-03 10:02 | EKG ---
Date Performed: 03/01/2017 Time Performed: 13:53:35 PTAGE: 76 years EKG: ATRIAL FIBRILLATION INTRAVENTRICULAR CONDUCTION DELAY Left bundle branch block Clinical cor relation is recommended NO PREVIOUS TRACING FOR COMPARISON DOCTOR: Jose Lara Interpretating Date/Time 03/03/2017 10:00:51
[2017-03-03] MEDS: NITROGLYCERIN-DEXTROSE INJ 250 ML IV SCH (11:22)
[2017-03-03] MEDS ORDERED: HEPARIN-NS/PF INJ 500 ML ONE (14:41)
[2017-03-03] MEDS ORDERED: MIDAZOLAM HCL 2 MG/2 ML VIAL ONE (14:41)
--- NOTE | 2017-03-03 15:40 | CATHPROC ---
COM DEV HIS Report Study Information Study Number Admission Scheduled Start Study Start [id number] Mar 01 2017 5:11PM 03/03/2017 Mar 03 2017 2:45PM [place] Service Cardiac Catheterization Admit Source Facility Department Other [facility] - Operator Receptionist Physician and Clinical Staff Initial MD Madison, Irving Poultry Dressing Worker Samuel Ivan,LIVE Recorder Estelle Gonzales,RT(R) Scrub Elvia Potter,RAVI TECH2 Procedures Performed Procedure Location (Site) Vessel Name Angiogram LV LV Ventricle Coronary Angiograms LCA Left Coronary Coronary Angiograms RCA Right Coronary L Heart Cath Wire insertion Fem Art (right) Femoral Art Equipment Time Pan Pusher Description Size Mfg Part Number Used/Scraped TRANSDUCER, TRREAGANAVE [id number] 14:49 LUEV[employer] MASTERS * Used W/STOCKCOCK *[id number] 15:21 [employer] MEDICAL VASCADE, FR5 CLOSURE SYSTEM FR 5 Used *[id number]- INTRODUCER SET, 14:49 [employer] FR 5 SC-NT-U-SST Used MICROPUNCTURE, STIFFENED *[id number] 534-518T *[id number] 534-520T *[id number] 534-521T *[id number] 534-552S *[id number] 14:49 [employer] INDUSTRIES PACK, CCL CUSTOM * Used *[id number] 14:49 Matches [employer] WIRE, 3MMJ .035 180CM 180CM Used *[id number] 14:49 NAMIC MANIFOLD, 4 PORT * Used *[id number] 15:14 NAMIC TUBING, HIGH PRESSURE 20" 20" Used *[id number] 14:49 [employer] OMNIPAQUE, 350 MG, 150ML 150ML [id number] Used [id number] 14:49 [employer] [facility] MEDICAL BLANKET,WARM AIR CCL * Used *[id number] 14:49 [employer] MEDICAL SHEATH, FR5 TERUMO (10CM) FR 5 Used *[id number] History: Current Medications Medication Dosage/Unit Route Frequency Last Date/Time Taken ASA History: Allergies Allergy Reaction No Known Allergies History: Risk Factors Family History of Hypertension Dyslipidemia Previous NH Previous Heart Failure Premature CAD Yes No Yes No No Prior Valve Prior PCI Prior CABG Surgery No No No Cerebrovascular Peripheral Artery Chronic Lung On Dialysis Diabetes Disease Disease Disease No No No No No History: Symptoms/Diagnosis Selection Items Chest pain History: Stress Tests Stress or Imaging Studies Performed No History: Other Disease Selection Items HTN History: Other Current Smoker No Labs Hgb (g/dl) Hct (%) WBC (l/cumm) Platelets (thousands) 11.60-17.00 35.00-51.00 4.00-11.00 150.00-450.00 12.8 37.6 7.3 175 Glucose (mg/dl) BUN (mg/dl) Creatinine (mg/dl) BUN:Creatinine (1:x) 74.00-106.00 7.00-18.00 0.50-1.30 10.00-20.00 90 8 0.6 13.3 Na (meq/l) K (meq/l) 136.00-145.00 3.50-5.10 141 3.5 INR (PTT:PT) 0.90-1.10 1 Troponin I (ng/ml) CPK (u/l) CPK-MB (ng/ML) 0.02-0.05 26.00-308.00 0.50-3.60 4.5 65 Not Drawn Medication Medication Total Dose (Bolus/Oral) Medication Total Dosage/Unit 1% XYLOCAINE 20 mL FENTANYL 50 mcg VERSED 1 mg Medications (Bolus/Oral) Medication Time Given Dosage/Unit Administered By Reason VERSED 03/03/2017 3:01:13 PM 1 mg Samuel Ivan 1 mg VERSED given in lab by Samuel Ivan, LIVE via Peripheral IV. Ordered by Irving Madison. FENTANYL 03/03/2017 3:02:28 PM 50 mcg Samuel Ivan 50 mcg FENTANYL given in lab by Samuel Ivan, LIVE via Peripheral IV. Ordered by Irving Madison. 1% XYLOCAINE 03/03/2017 3:03:49 PM 20 mL Irving Madison 20 mL 1% XYLOCAINE given in lab by Irving Madison in Right Groin via Subcutaneous. Medication (Drip) Medication Time Given Dosage/Unit Concentration/Unit Diluent (ml) Solution IV Solutions 03/03/2017 2:46:40 PM 0 mL (IV) 500 NaCl .9 Patient arrived on IV Solutions in Left Wrist via Peripheral IV. Pump/Drip Flow = 20 ml/hr using NaCl .9. Ordered by Irving Madison. Initial Case Assessment Cardiovascular HR Rhythm NIBP Chest Pain 50 afib 142/68 0 Edema Present Skin color Skin None Normal Warm Circulatory - Right Pulses Dorsalis Pedis Femoral 3 3 Scale (0,1,2,3,4,d) Circulatory - Left Pulses Dorsalis Pedis Femoral 3 3 Scale (0,1,2,3,4,d) Circulatory - Lower Extremities Color Lower Right Color Lower Left Normal Normal Neurological State Oriented to time-place- Alert Moves all extremities person Respiration - General Respiration Rate SpO2 (%) (B/min) 11 97 Final Case Assessment Cardiovascular HR Rhythm NIBP Chest Pain 54 AFIB 139/73 0 Edema Present Skin color Skin None Normal Warm Circulatory - Right Pulses Dorsalis Pedis Femoral 3 3 Scale (0,1,2,3,4,d) Circulatory - Left Pulses Dorsalis Pedis Femoral 3 3 Scale (0,1,2,3,4,d) Circulatory - Lower Extremities Color Lower Right Color Lower Left Normal Normal Neurological State Oriented to time-place- Alert Moves all extremities person Respiration - General Respiration Rate SpO2 (%) (B/min) 11 96 Chronological Log Time Study Chronological Log 14:40:24 Patient arrived via Bed. 14:46:16 Reference ECG taken Vitals capture started with the following parameters, Patient=Adult, Interval=5 min, Initial Pr tjbsqy=993 mmHg, 14:46:22 Deflation Rate=5 mmHg, Cuff placed on Right Arm 14:46:31 Patient Name, D.O.B, / Armband Verified By R.N. 14:46:32 Consent signed by the physician and the patient and verified by the Operator Receptionist staff. 14:46:32 Pre-op and post- op instructions given; patient acknowledges understanding of instructions. 14:46:33 Verbal Stimulation=2 Physical Stimulation=2 Airway=2 Respiration=2 TOTAL=8. (0=absent, 1=li mited, 2=present) 14:46:36 Patient has been NPO for More than 6Hrs. 14:46:36 Skin Breakdown-none 14:46:38 A # 20 IV was noted in the Wrist (left). Grade = 0 Patient arrived on IV Solutions in Left Wrist via Peripheral IV. Pump/Drip Flow = 20 ml/hr usin g NaCl .9. Ordered by 14:46:40 Irving Madison. 14:47:07 HR=60 bpm, ZKGL=564/81 mmhg, SpO2=96.0 %, Resp=9 B/min, Pain=0, Cj=10, Phillips=2 14:51:04 Pressure channel 1 zeroed. 14:52:02 HR=57 bpm, BRUB=294/68 mmhg, SpO2=97.0 %, Resp=9 B/min, Pain=0, Cj=10, Phillpis=2 14:55:50 History and physical on the chart or being dictated. Assessment: Initial Case, HR=50 BPM, Rhythm=afib, AHSI=371/68 mmhg, Chest Pain=0, Edema=None, Color=Normal, Skin = Warm Right Pulses: Rk Ped=3, Femoral=3 Left Pulses: Rk Ped=3, Femoral=3 14:55:52 Lower Right Extremities: Color=Normal Lower Left Extremities: Color=Normal Neurological: State=Alert, Ox3, FIELDS Respiration: Resp=11 B/min, SpO2=97 % 14:56:31 Bilateral groins prepped with 2% chlorhexidine, and with a 3 min. waiting time. 14:56:34 MD paged 14:57:27 HR=54 bpm, GETG=071/78 mmhg, SpO2=98.0 %, Resp=14 B/min, Pain=0, Cj=10, Phillips=2 15:00:56 MD arrived. 15:01:13 1 mg VERSED given in lab by Samuel Ivan, RN via Peripheral IV. Ordered by Chau Madison. 15:01:58 HR=52 bpm, JLJE=735/83 mmhg, SpO2=97.0 %, Resp=15 B/min, Pain=0, Cj=10, Phillips=2 15:02:28 50 mcg FENTANYL given in lab by Samuel Ivan, LIVE via Peripheral IV. Ordered by Irving Madison. 15:03:40 Case Start 15:03:42 Verbal Stimulation=2 Physical Stimulation=2 Airway=2 Respiration=2 TOTAL=8. (0=absent, 1=li mited, 2=present) 15:03:49 20 mL 1% XYLOCAINE given in lab by Irving Madison in Right Groin via Subcutaneous. 15:04:48 Access site was Right Femoral Artery.with MP kit 15:05:05 A wire was inserted via Fem Art (right). 15:05:07 A SHEATH, FR5 TERUMO (10CM) FR 5 was advanced into the Fem Art (right) using the Percutaneo us technique. 15:05:54 An injection in the Fem Art (right) was made through the SHEATH, FR5 TERUMO (10CM) FR 5. A JR 4.0 INFINITI CATHETER FR 5 was advanced over a wire. OMNIPAQUE, 350 MG, 150ML 150ML was us ed for 15:06:10 injections. 15:06:57 HR=80 bpm, NJEF=597/91 mmhg, SpO2=96.0 %, Resp=10 B/min, Pain=0, Cj=10, Phillips=2 Recorded Pressure: LV, HR=98, Condition=Condition 1 15:07:04 (Left Ventricle) LV 134/8/16 Recorded Pressure: LV, Ao, HR=61, Condition=Condition 1 15:07:44 (Left Ventricle) LV 145/8/17, (Aorta) Ao 144/57/92 15:08:17 The RCA was injected and visualized at various angles. OMNIPAQUE, 350 MG, 150ML 150ML used . 15:08:38 Catheter was removed A JL 4.0 INFINITI CATHETER FR 5 was advanced over a wire. OMNIPAQUE, 350 MG, 150ML 150ML was us ed for 15:09:37 injections. 15:10:15 The LCA was injected and visualized at various angles. OMNIPAQUE, 350 MG, 150ML 150ML used . 15:12:16 Catheter was removed 15:12:33 HR=65 bpm, SLTC=942/78 mmhg, SpO2=96.0 %, Resp=20 B/min, Pain=0, Cj=10, Phillips=2 15:13:00 POWER INJECTOR LOADED NOW BY Laura IVAN AND VERIFIED BY Osvaldo POTTER A PIGTAIL ANG. INFINITI CATHETER FR 5 was advanced over a wire. OMNIPAQUE, 350 MG, 150ML 150ML was used 15:13:38 for injections. 15:15:01 The LV was injected at 15 cc/sec for a total of 30. OMNIPAQUE, 350 MG, 150ML 150ML used. 15:16:12 Catheter was removed 15:17:28 HR=60 bpm, HNOV=529/73 mmhg, SpO2=97.0 %, Resp=14 B/min, Pain=0, Cj=10, Phillips=2 Assessment: Final Case, HR=54 BPM, Rhythm=AFIB, BLHN=358/73 mmhg, Chest Pain=0, Edema=None, Color=Normal, Skin = Warm Right Pulses: Rk Ped=3, Femoral=3 Left Pulses: Rk Ped=3, Femoral=3 15:20:01 Lower Right Extremities: Color=Normal Lower Left Extremities: Color=Normal Neurological: State=Alert, Ox3, FIELDS Respiration: Resp=11 B/min, SpO2=96 % 15:21:00 Catheter(s) removed without difficulty 15:21:16 VASCADE, FR5 CLOSURE SYSTEM FR 5 placement in the Fem Art (right) 15:22:00 HR=55 bpm, JPNQ=647/75 mmhg, SpO2=96.0 %, Resp=9 B/min, Pain=0, Cj=10, Phillips=2 15:22:25 Case End 15:23:15 Sterile dressing applied to site 15:23:16 No case complications noted. 15:23:17 Cine recording checked. 15:23:21 Bedside Report will be given. 15:23:27 Contrast Scanned 15:25:47 A Left Heart Cath was performed. 15:25:51 Clinical correlaton risk stratification. 15:26:20 NITRO DISCONTINUED BEFORE CASE START 15:27:01 HR=64 bpm, WQUV=373/80 mmhg, SpO2=96.0 %, Resp=18 B/min, Pain=0, Cj=10, Phillips=2 15:31:37 Vitals capture stopped. End Study - Maximum Contrast Load Max Contrast Load (mL) 666.7 End Study - Radiation Exposure Fluoro Time (minutes) 2.0 End Study - Sheaths Sheaths Pulled By Sheath Hold Time (min) Irving Madison 5 End Study - Patient Disposition Complications Transferred To No Regular Bed
[2017-03-03] MEDS ORDERED: ONDANSETRON HCL 4 MG/2 ML VIAL IV PRN (15:45)
[2017-03-03] MEDS ORDERED: ATROPINE SULFATE 1 MG/ML VIAL IV PRN (15:45)
--- NOTE | 2017-03-03 17:19 | MA ---
cc: LOPEZChaceVERNONLIANA Riley DATE 03/03/2017 DATE OF 1940 PROCEDURE PERFORMED 1. Left heart catheterization. 2. Selective right and left coronary angiography. 3. right and left ventriculogram. 4. Right common femoral artery angiography. INDICATION [id number] [place]. DESCRIPTION OF PROCEDURE Consent signed. The patient was brought into the cardiac cath in fasting state. The right groin and left groin were prepped and draped in sterile fashion. Using 1% lidocaine for local anesthesia and a micropuncture kit a 5- [place]ar[place] sheath was inserted into the right common femoral artery. Right common femoral artery angiography was performed to confirm position of the sheath. Then selective right and left coronary angiography was performed with a JR-4 and JL-4 diagnostic catheters. Angiography was taken in multiple views. Then angled pigtail was introduced into the ventricle over a wire. This was followed by pressure recordings, left ventriculogram and pullback. The patient tolerated the procedure well without complications. Estimated blood loss less than 30 mL. Total contrast 55 mL. The right groin access site was closed with a Vascade closure device. RESULTS LEFT VENTRICLE The left ventricular pressure was 145/80 with an LVEDP of 17mmHg. The aortic pressure was 144/57 with a mean of 92. There was no gradient upon pullback from the left ventricle to aorta. Left ventriculogram revealed a mild hypokinesis of the apex with a hawk's beak appearance in the apex. Estimated ejection fraction of 45-50%. ANGIOGRAPHY 1. Right coronary artery is a dominant vessel. It is giving off the PDA. The right coronary artery is smooth appearing and has nonobstructive coronary artery disease and slow flow to the left main. It is patent with KAYKAY III flow and nonobstructive coronary artery disease. 2. The LAD is a transapical vessel, is giving off one prominent diagonal vessel which is patent with KAYKAY III flow. The LAD is also patent with nonobstructive coronary artery disease and it has slow flow. 3. The left circumflex artery has minimal luminal irregularities with 10 percent lesion in the proximal segment. The circ is giving off three OM branches which all are patent with KAYKAY III flow and nonobstructive coronary artery disease. CONCLUSION 1. Nonobstructive coronary artery disease. 2. Stress mediated cardiomyopathy/Takotsubo. 3. Elevated LVEDP. RECOMMENDATIONS Continue aggressive medical management for primary prevention of coronary artery disease. Follow up with her outpatient rail track layer upon discharge. MD ESTELLA Rey/LILIAN /3:33 PM /4:53 PM GILMAR
[2017-03-03] MEDS: ATORVASTATIN 10 MG TAB PO SCH (20:57)
[2017-03-03] MEDS: LOSARTAN 50 MG TAB PO SCH (20:57)
[2017-03-03] MEDS: ACETAMINOPHEN 325 MG TAB PO PRN (20:58)
[2017-03-03] MEDS: clonazePAM 1 MG TAB PO PRN (20:58)
[2017-03-04] VITALS (11 sets, daily range): BP systolic 132–139; BP diastolic 69–73; PULSE 46–90; RESP 18; TEMP 97.6–98.5; O2SAT 95
[2017-03-04] MEDS: LEVOTHYROXINE SODIUM 25 MCG TAB PO SCH (05:31)
[2017-03-04 06:52] LABS: MEAN CELL VOLUME 87.5 FL (80.0-100.0); MEAN CORPUSCULAR HEMOGLOBIN 30.2 PG (27.0-34.0); MEAN CORPUSCULAR HGB CONC 34.5 % (32.0-36.0); PLATELET COUNT 179 TH/MM3 (150-450); RED BLOOD COUNT 4.69 MIL/MM3 (4.00-5.30); RED CELL DISTRIBUTION WIDTH 12.8 % (11.6-17.2); REVIEW FLAG FINAL; WHITE BLOOD COUNT 6.6 TH/MM3 (4.0-11.0)
[2017-03-04 07:09] LABS: APTT (PATIENT) 28.3 SEC (24.3-30.1)
[2017-03-04 07:30] LABS: BICARBONATE 23.8 MEQ/L (21.0-32.0); POTASSIUM 3.4 MEQ/L (3.5-5.1)
--- NOTE | 2017-03-04 08:11 | PD.CARD.PN ---
Subjective Subjective Remarks Pt without complaints Objective Medications Current Medications Medications (Trade) Dose Ordered Sig/Jackson Route Start Time Stop Time Status Last Admin (Nitroglycerin-Dextrose Inj) 250 ml @ 0 mls/hr TITRATE IV 03/01/17 17:00 03/03/17 11:22 (KlonoPIN) 1 mg BID PRN PO 03/01/17 17:00 03/03/17 20:58 (Synthroid) 25 mcg DAILY@06 PO 03/02/17 06:00 03/04/17 05:31 (Cozaar) 100 mg HS PO 03/01/17 21:00 03/03/17 20:57 (Cardizem Cd) 240 mg DAILY PO 03/02/17 09:00 03/03/17 09:32 (Cardizem Cd) 180 mg DAILY PO 03/02/17 09:00 03/03/17 09:32 (Lipitor) 10 mg HS PO 03/01/17 21:00 03/03/17 20:57 (Aspirin) 81 mg DAILY PO 03/02/17 09:00 03/03/17 09:32 (NS Flush) 2 ml BID IV FLUSH 03/01/17 21:00 03/03/17 21:00 (NS Flush) 2 ml UNSCH PRN IV FLUSH 03/01/17 17:15 (Morphine Inj) 2 mg Q30M PRN IV 03/01/17 17:15 (Tylenol) 650 mg Q6H PRN PO 03/01/17 17:15 03/03/17 20:58 Ondansetron HCl 4 mg 4 mg Q6H PRN IV 03/01/17 17:15 Sodium Chloride 1,000 ml @ 60 mls/hr [id number] IV 03/01/17 21:15 03/03/17 09:32 (Heparin-D5W Inj) 250 ml @ 0 mls/hr TITRATE IV 03/02/17 17:15 03/02/17 17:34 (Heparin Inj) 5,000 units UNSCH PRN IV 03/02/17 17:15 (Heparin Inj) 2,500 units UNSCH PRN IV 03/02/17 17:15 (Atropine Inj) 0.5 mg UNSCH PRN IV 03/03/17 15:45 (Zofran Inj) 4 mg Q4H PRN IV 03/03/17 15:45 Vital Signs / I&O Vital Signs Date Time Temp Pulse Resp B/P Pulse Ox O2 Delivery O2 Flow Rate FiO2 03/04/17 07:15 64 03/04/17 07:15 98.5 77 18 132/69 95 03/04/17 06:11 72 03/04/17 05:00 58 03/04/17 04:00 58 03/04/17 03:00 97.6 63 139/73 95 03/04/17 03:00 58 03/04/17 02:00 48 03/04/17 01:00 46 03/04/17 00:00 50 03/03/17 23:00 98.2 52 116/51 96 03/03/17 23:00 58 03/03/17 22:00 78 03/03/17 21:31 94 21 03/03/17 21:00 68 03/03/17 20:00 74 03/03/17 19:00 60 03/03/17 19:00 98.0 72 141/74 95 03/03/17 18:00 76 03/03/17 17:00 66 03/03/17 16:00 67 03/03/17 15:30 59 03/03/17 15:30 67 19 133/85 93 03/03/17 14:00 66 03/03/17 13:00 79 03/03/17 12:00 82 03/03/17 11:09 97 21 03/03/17 11:00 97.5 92 18 135/82 95 03/03/17 11:00 81 03/03/17 10:00 80 03/03/17 09:00 76 I/O 03/03/17 03/03/17 03/03/17 03/04/17 03/04/17 03/04/17 07:00 15:00 23:00 07:00 15:00 23:00 Intake Total 240 ml 120 ml 240 ml Output Total 1500 ml 2000 ml 300 ml Balance -1260 ml -1880 ml -60 ml Intake Oral 240 ml 120 ml 240 ml Output Urine Total 1500 ml 2000 ml 300 ml Physical Exam GENERAL: Well developed, well nourished. No acute distress. HEENT: Jugular venous pressure is normal. CHEST: Lungs clear to auscultation bilaterally. Unlabored respiratory effort. CARDIAC: Regular rate and rhythm without S3, S4, or murmur. ABDOMEN: Soft, nontender, no hepatosplenomegaly. Bowel sounds present. EXTREMITIES: No clubbing, cyanosis, or edema. Laboratory Laboratory Tests Test 03/04/17 05:42 White Blood Count 6.6 TH/MM3 Red Blood Count 4.69 MIL/MM3 Hemoglobin 14.2 GM/DL Hematocrit 41.0 % Mean Corpuscular Volume 87.5 FL Mean Corpuscular Hemoglobin 30.2 PG Mean Corpuscular Hemoglobin 34.5 % Concent Red Cell Distribution Width 12.8 % Platelet Count 179 TH/MM3 Mean Platelet Volume 8.3 FL Activated Partial 28.3 SEC Thromboplast Time Sodium Level 137 MEQ/L Potassium Level 3.4 MEQ/L Chloride Level 104 MEQ/L Carbon Dioxide Level 23.8 MEQ/L Anion Gap 9 MEQ/L Blood Urea Nitrogen 11 MG/DL Creatinine 0.68 MG/DL Estimat Glomerular Filtration 84 ML/MIN Rate Random Glucose 93 MG/DL Calcium Level 8.8 MG/DL Assessment and Plan Assessment and Plan 1. Non-S-T elevation myocardial infarction - -cath without obstructive disease -activities discussed 2. History of atrial fibrillation - restart eliquis 3. History of abnormal EKG - 4. HTN- ok for d/c Swati Caceres MD Mar 04, 2017 08:10
[2017-03-04] MEDS ORDERED: LIPI10TA PO (08:57)
[2017-03-04] MEDS ORDERED: ASPI325T PO (08:57)
--- NOTE | 2017-03-04 08:58 | HHI.DCPOC ---
Discharge Care Plan Diagnosis: (1) Uncontrolled hypertension (2) Non-ST elevation [place] (NSTEMI) (3) Hypothyroid (4) Atrial fibrillation (5) HTN (hypertension) Goals to Promote Your Health * To prevent worsening of your condition and complications * To maintain your health at the optimal level Directions to Meet Your Goals Take your medications as prescribed Follow your dietary instruction Follow activity as directed Keep your appointments as scheduled Take your immunizations and boosters as scheduled If your symptoms worsen call your PCP, if no PCP go to Urgent Care Center or Emergency Room Smoking is Dangerous to Your Health. Avoid second hand smoke Call the 24-hour hour crisis hotline for domestic abuse at Ritika Miles MD R1 Mar 04, 2017 08:58
[2017-03-04] MEDS ORDERED: APIXABAN 5 MG TABLET PO SCH (09:00)
--- NOTE | 2017-03-04 09:15 | HHI.FPPN ---
Subjective Remarks Mrs. Jackson states that she is doing well this morning. She underwent her cardiac cath yesterday with no complications. She feels great, no CP, no SOB, no fever/chills, no nausea/vomiting. She is looking forward to going home soon. (Ritika Miles MD R1) Objective Vitals Vital Signs Date Time Temp Pulse Resp B/P Pulse Ox O2 Delivery O2 Flow Rate FiO2 03/04/17 08:00 77 03/04/17 07:15 64 03/04/17 07:15 98.5 77 18 132/69 95 03/04/17 06:11 72 03/04/17 05:00 58 03/04/17 04:00 58 03/04/17 03:00 97.6 63 139/73 95 03/04/17 03:00 58 03/04/17 02:00 48 03/04/17 01:00 46 03/04/17 00:00 50 03/03/17 23:00 98.2 52 116/51 96 03/03/17 23:00 58 03/03/17 22:00 78 03/03/17 21:31 94 21 03/03/17 21:00 68 03/03/17 20:00 74 03/03/17 19:00 60 03/03/17 19:00 98.0 72 141/74 95 03/03/17 18:00 76 03/03/17 17:00 66 03/03/17 16:00 67 03/03/17 15:30 59 03/03/17 15:30 67 19 133/85 93 03/03/17 14:00 66 03/03/17 13:00 79 03/03/17 12:00 82 03/03/17 11:09 97 21 03/03/17 11:00 97.5 92 18 135/82 95 03/03/17 11:00 81 03/03/17 10:00 80 I/O 03/03/17 03/03/17 03/03/17 03/04/17 03/04/17 03/04/17 07:00 15:00 23:00 07:00 15:00 23:00 Intake Total 240 ml 120 ml 240 ml Output Total 1500 ml 2000 ml 300 ml Balance -1260 ml -1880 ml -60 ml Intake Oral 240 ml 120 ml 240 ml Output Urine Total 1500 ml 2000 ml 300 ml (Ritika Miles MD R1) Result Diagram: 03/04/17 0542 03/04/17 05 Objective Remarks O. CONSTITUTIONAL/GEN: normally nourished, in NAD. EYES: conjunctiva normal, PERRLA, EOMI. ENT: Mouth and pharynx normal. NECK: thyroid midline, carotids symmetrical. LUNGS: CTA bilaterally, respiratory effort is normal. CARDIOVASCULAR: IRR/IRR without murmur or gallop. Trace LE edema with mild hemosiderin staining of the skin of her lower legs. GI/ABD: soft without masses, without organomegaly. NEURO: No focal deficits. SKIN: color normal, no rashes noted. HEME/LYMPH: no bruising, petechia or significant adenopathy MUSC: back is normal in appearance. Extremities are normal in appearance. PSYCH/MENTAL STATUS: Alert and oriented x 3. (Ritika Miles MD R1) A/P Assessment and Plan 76 year old female with past history of HTN and hypothyroid presented to the ED with jaw pain. Troponin elevated at .24 on admission and trended upward. Most likely had a NSTEMI. Cardiac catheterization was performed on 03-03 showing nonobstructive CAD. Discharge Planning Cath results show nonobstructive CAD. Pt is cleared by cardiology. Patient to be discharged today. (Ritika Miles MD R1) Attending Attestation Patient seen and examined. Case reviewed and discussed with the resident team. Agree with plan of care as discussed with me and documented in the resident note. (Byron Mcguire MD) Problem List: (1) Non-ST elevation AK (NSTEMI) Status: Acute Plan: * Cardiology on board, appreciate recommendations * Troponin .24 on admission->13.9 ->15.8 ->4.51 * Lipid profile: Total cholesterol- 168, LDL- 79, HDL- 73.1 * EKG shows atrial fibrillation with the left bundle branch block and anterior QA use with associated ST changes * Echo results: low normal EF of 50-55% * Cath results: nonobstructive CAD, stress mediated cardiomyopathy * IV Nitro * ASA 81 daily * Atorvastatin 10 mg hs * Morphine prn pain (2) Atrial fibrillation Status: Chronic Plan: * Diltiazem * Eliquis to be restarted after discharge (3) HTN (hypertension) Status: Chronic Plan: * Cardiology on board * Losartan 100mg qHS (4) Hypothyroid Status: Chronic Plan: Continue home medications * Levothyroxine 25 mcg daily * TSH normal at 3.03 (5) Uncontrolled hypertension Status: Acute Plan: Fluids - 1/2 maintenance NS @ 60 mls/hr Electrolytes - monitor and correct as needed Nutrition - Heart Healthy Diet PPX -IV heparin (Ritika Miles MD R1) Ritika Miles MD R1 Mar 04, 2017 09:15 Byron Mcguire MD Mar 04, 2017 10:28
[2017-03-04] MEDS: ASPIRIN 325 MG TAB PO SCH (09:18)
[2017-03-04] MEDS: DILTIAZEM-CD 240 MG CAP ER PO SCH (09:19)
[2017-03-04] MEDS: DILTIAZEM-CD 180 MG CAP ER PO SCH (09:19)
[2017-03-04] MEDS: SODIUM CHLORIDE 0.9% FLUSH 10 ML FLUSH IV FLUSH SCH (09:19)
--- NOTE | 2017-03-04 10:14 | HHI.DS ---
Discharge Summary Admission Date Mar 01, 2017 at 17:11 Discharge Date: Mar 04, 2017 Admitting Diagnosis NSTEMI (1) Non-ST elevation AK (NSTEMI) Diagnosis: Principal Plan: * Cardiology on board, appreciate recommendations * Troponin .24 on admission->13.9 ->15.8 ->4.51 * Lipid profile: Total cholesterol- 168, LDL- 79, HDL- 73.1 * EKG shows atrial fibrillation with the left bundle branch block and anterior QA use with associated ST changes * Echo results: low normal EF of 50-55% * Cath results: nonobstructive CAD, stress mediated cardiomyopathy * IV Nitro * ASA 81 daily * Atorvastatin 10 mg hs * Morphine prn pain (2) Atrial fibrillation Diagnosis: Secondary Plan: * Diltiazem * Eliquis to be restarted after discharge (3) HTN (hypertension) Diagnosis: Secondary Plan: * Cardiology on board * Losartan 100mg qHS (4) Hypothyroid Diagnosis: Secondary Plan: Continue home medications * Levothyroxine 25 mcg daily * TSH normal at 3.03 (5) Uncontrolled hypertension Diagnosis: Secondary Plan: Fluids - 1/2 maintenance NS @ 60 mls/hr Electrolytes - monitor and correct as needed Nutrition - Heart Healthy Diet PPX -IV heparin Consultants Cardiology Procedures Cardiac Catheterization Brief History Patient is a 76-year-old female with a past history of hypertension and hypothyroidism who came into the ED with jaw pain. The patient states that yesterday prior to going out to shop she felt slightly lightheaded, but that passed shortly. At 11:30 on the day of admission she noted some jaw pain. She contacted her primary care provider Dr. Arnaldo estrada in [facility] who advised her to go to the ED to rule out a possible atypical myocardial infarction. She notes that the jaw pain was dull, started on the left side and eventually felt throughout the entire jaw. The pain has since subsided. No complaints of concurrent dizziness chest pain, palpitations, shortness of breath , headache, changes in vision, syncope, weakness, numbness or tingling, abdominal pain, changes in bowel or bladder habits. Currently at admission notes resolution of her jaw pain. No other current complaints. She notes she sees Dr. Alphonso Chappell at [facility] in [facility]. CBC/BMP: 03/04/17 0542 03/04/17 0542 Significant Findings Laboratory Tests Test 03/01/17 03/01/17 03/02/17 03/03/17 13:55 19:57 02:03 00:10 Hemoglobin 15.6 GM/DL (11.6-15.3) Hematocrit 46.2 % (35.0-46.0) Neutrophils (%) (Auto) 71.7 % (16.0-70.0) Monocytes (%) (Auto) 8.4 % (0.0-8.0) 11.6 % (0.0-8.0) Activated Partial 31.7 SEC 47.5 SEC Thromboplast Time (24.3-30.1) (24.3-30.1) Estimat Glomerular Filtration 71 ML/MIN (>89) 80 ML/MIN (>89) Rate Alkaline Phosphatase 131 U/L (45-117) Troponin I 0.24 NG/ML 13.90 NG/ML 15.80 NG/ML (0.02-0.05) (0.02-0.05) (0.02-0.05) Triglycerides Level 158 MG/DL (42-150) Cholesterol Level 212 MG/DL (120-200) HDL Cholesterol 87.1 MG/DL 73.1 MG/DL (40.0-60.0) (40.0-60.0) Creatine Kinase MB 15.7 NG/ML 15.9 NG/ML (0.5-3.6) (0.5-3.6) Calcium Level 8.4 MG/DL (8.5-10.1) Aspartate Amino Transf 39 U/L (15-37) (AST/SGOT) Albumin 3.2 GM/DL (3.4-5.0) Test 03/03/17 03/04/17 06:56 05:42 Activated Partial 57.4 SEC Thromboplast Time (24.3-30.1) Chloride Level 109 MEQ/L (98-107) Calcium Level 8.3 MG/DL (8.5-10.1) Troponin I 4.51 NG/ML (0.02-0.05) Potassium Level 3.4 MEQ/L (3.5-5.1) Estimat Glomerular Filtration 84 ML/MIN (>89) Rate Imaging Last Impressions Chest X-Ray 03/01/17 6147 Signed Impressions: Service Date/Time: Wednesday, March 01, 2017 15:00 - CONCLUSION: Mild cardiomegaly. No acute cardiopulmonary process. Eh Santana MD PE at Discharge O. CONSTITUTIONAL/GEN: normally nourished, in NAD. EYES: conjunctiva normal, PERRLA, EOMI. ENT: Mouth and pharynx normal. NECK: thyroid midline, carotids symmetrical. LUNGS: CTA bilaterally, respiratory effort is normal. CARDIOVASCULAR: IRR/IRR without murmur or gallop. Trace LE edema with mild hemosiderin staining of the skin of her lower legs. GI/ABD: soft without masses, without organomegaly. NEURO: No focal deficits. SKIN: color normal, no rashes noted. HEME/LYMPH: no bruising, petechia or significant adenopathy MUSC: back is normal in appearance. Extremities are normal in appearance. PSYCH/MENTAL STATUS: Alert and oriented x 3. Hospital Course Mrs. Jackson is a 76yo female with a past medical history of hypertension, A fib , and hypothyroidism who came into the ED with jaw pain and uncontrolled HTN. Troponin was increased at 0.24. She was diagnosed with a NSTEMI. Cardiology was consulted and she was placed on a IV nitro and heparin drip to await cardiac catheterization. Cath was performed on hospital day 3 after consideration from the patient and showed nonobstructive CAD. Pt was then cleared for discharge by cardiology with recommendations of aggressive medical management for primary prevention of CAD. Patient is being discharged in stable condition with new prescriptions for atorvastatin 10mg qD and aspirin 81mg qD. 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 Pt Condition on Discharge: Stable Discharge Disposition: Discharge Home Discharge Instructions DIET: Follow Instructions for: Heart Healthy Diet Activities you can perform: Regular-No Restrictions Follow up Referrals: Cardiology - 1 Week PCP Follow-up - 1 Week New Medications: Aspirin (Aspirin) 325 Mg Tab 81 MG PO DAILY #30 TAB Atorvastatin (Lipitor) 10 Mg Tab 10 MG PO HS #30 TAB Continued Medications: Apixaban (Eliquis) 5 Mg Tab 5 MG PO BID Blood Clot Prevention #60 Ref 0 TAB Clonazepam (Clonazepam) 1 Mg Tab 1 MG PO BID PRN ANXIETY #60 Ref 0 TAB Diltiazem ER 24 HR (Diltiazem ER 24 HR) 420 Mg Caper 420 MG PO DAILY #30 Ref 0 CAP Levothyroxine (Levothyroxine) 25 Mcg Tab 25 MCG PO DAILY Thyroid #30 Ref 0 TAB Losartan (Losartan) 100 Mg Tab 100 MG PO HS Blood Pressure Management #30 Ref 0 TAB Ritika Miles MD R1 Mar 04, 2017 10:14
[2017-03-04] MEDS ORDERED: IOHEXOL 350 MG/ML 100 ML BTL (for Cath Lab) OTHER ONE (10:30)
== END 2017-03-04 10:31 | disposition home or self-care (01) | DRG 282 ==
LOC: NEPC 13:36 → NEDA 17:11 → HCVR 17:57 → HCIS 03-02 13:27
PROVIDERS: ADMIT Family Medicine; ATTEND Family Medicine
PROC: B2111ZZ Fluoroscopy of Multiple Coronary Arteries using Low Osmolar Contrast (ICD-10-PCS; 2017-03-03)
PROC: B2161ZZ Fluoroscopy of Right and Left Heart using Low Osmolar Contrast (ICD-10-PCS; 2017-03-03)
PROC: B41F1ZZ Fluoroscopy of Right Lower Extremity Arteries using Low Osmolar Contrast (ICD-10-PCS; 2017-03-03)
PROC: 4A023N7 Measurement of Cardiac Sampling and Pressure, Left Heart, Percutaneous Approach (ICD-10-PCS; principal; 2017-03-03 14:45)
DX: I21.4 Non-ST elevation (NSTEMI) myocardial infarction (principal); I48.91 Unspecified atrial fibrillation; I10 Essential (primary) hypertension; E03.9 Hypothyroidism, unspecified; I25.10 Atherosclerotic heart disease of native coronary artery without angina pectoris; Z87.891 Personal history of nicotine dependence
CPT/HCPCS: 71010; 80048; 80053; 80061; 80076; 82550; 82552; 83735; 84443; 84484; 85025; 85027; 85610; 85730; 93005; 93306; 93458; 94150; 96374; C1769; C1893; J1644; J2250; J3010; J7030; Q9967